=== PATIENT | female | born 2000 | race Caucasian/White ===

== ENCOUNTER 2021-01-22 08:28 | Emergency (ER) | payer OTHER, SELFPAY ==
[2021-01-22 08:36] VITALS: BP 142/86; PULSE 87; RESP 18; TEMP 36.8; O2SAT 100; BMI 30.7
--- NOTE | 2021-01-22 09:05 | [facility].EDGENADL ---
ED Disposition Clinical Impression: Bruise of breast Qualifiers: Encounter type: initial encounter Laterality: left Qualified Code(s): S20.02XA - Contusion of left breast, initial encounter Disposition: Home, Self-Care Condition on Discharge: Good Additional Instructions: Follow-up with primary care provider if not improving in 1 week or if worsening Referrals: Cody Pagan [Primary Care Provider] - - Critical Care Critical Care Time: No Attestation: On 01/22/21, the high probability of a clinically significant, sudden or life threatening deterioration of the following system(s) required my full and direct attention, intervention and personal management. The time I documented below is in addition to time spent performing reported procedures but includes the following listed in this critical care notation. Medical Decision Making - Burt Inquiry Pt receiving controlled substance: No Vital Signs: 01/22/21 08:36 01/22/21 09:22 Temperature 98.2 F 98.2 F Temperature Source Oral Oral Pulse Rate 96 H Pulse Rate [Left Radial] 87 Respiratory Rate 18 20 Blood Pressure 139/72 Blood Pressure [Right Arm] 142/86 H Blood Pressure Mean [Right Arm] 104 Blood Pressure Source Automatic Cuff Blood Pressure Source [Right Arm] Automatic Cuff Blood Pressure Position Sitting Blood Pressure Position [Right Arm] Sitting 02 Sat by Pulse Oximetry 100 Oxygen Delivery Method Room Air Room Air Medical Decision Narrative: The area of concern appears to be an ecchymosis, possible minimal hematoma formation associated with it. No concerning masses. No no signs of infection. Advised continued observation at home and if not improving in 1 week follow-up with primary care provider. I do not feel any imaging or testing is needed at this time. General Adult HPI - General Chief complaint: Skin/Abscess/Foreign Body Stated complaint: bruise, lump on lt breast Time Seen by Provider: 01/22/21 08:50 Mode of Arrival: Ambulatory Limitations: No Limitations Description of Symptoms (Recalled from ER Triage Doc. by RN): c/o a bruise/tenderness spot on her left breast for one week. Denies any injury or known cause - History of Present Illness HPI narrative: Noticed a bruise on her left breast 1 week ago. States it is sore and she feels a lump under the bruise. No trauma or injury recalled. No discharge from the breast. No fever or other symptoms. Has some soreness in her left shoulder blade as well. No easy bruising, no history of blood dyscrasia. She is not on any blood thinners. [facility] History - Hepatitis A Screen Drug use history?: No High risk sexual behaviors?: No History of sexually transmitted infection?: No Currently employed?: No Childcare worker?: No Do you have indoor plumbing?: Yes Do you have electricity?: Yes Attestation statement:: This patient has been screened for Hepatitis A risk factors. I have reviewed the patient's past medical history: Yes ROS Obtained: Yes Systems reviewed as appropriate & no additional complaints - Constitutional Constitutional: Denies fever(s) - Integumentary/Breasts Skin/Breast: Reports as per HPI, Reports unusual bruising, Denies change in breast shape, Denies breast swelling, Denies nipple discharge Physical Exam - General General appearance: alert, in no apparent distress - Expanded Chest Exam Female Torso: 1 - Yellow/green discoloration of skin consistent with resolving ecchymosis. Tender. No definite mass. Questionable minimal hematoma formation subcutaneous. - Respiratory Respiratory exam: Absent: respiratory distress - Cardiovascular Cardiovascular exam: Present: regular rate - Neurological Exam Neurological exam: Present: alert, oriented X3
--- NOTE | 2021-01-22 09:15 | PC.NURSE ---
Assisted MD with breast exam. Pt tolerated well.
[2021-01-22 09:22] VITALS: BP 139/72; PULSE 96; RESP 20; TEMP 36.8; O2SAT 100
== END 2021-01-22 09:24 | disposition home or self-care (01) ==
PROVIDERS: Emergency Provider Emergency Medicine; PCP Pediatrics
DX: S20.02XA Contusion of left breast, initial encounter (principal)
CPT/HCPCS: 99281